=== PATIENT | female | born 1965 | race Caucasian/White ===

== ENCOUNTER 2019-04-08 10:38 | Emergency (ER) | payer MEDICAID ==
[~2019-04-08] VITALS: Ht 167.6 cm; Wt 79.7 kg
[~2019-04-08 10:38] MED LIST: CETI10TA24 PO; CHOL100011 PO; FERR325T18 PO; FLUT16SP NS; LISI1TAB3 PO; MULT-658 PO; SIME180C4 PO; TRIA15CR53 TP
--- NOTE | 2019-04-08 11:00 | NUR ---
RIGHT CHEST PAIN DESCRIBED SHARP W/ BLOATING/INCESSANT BURPING X 10 HOURS. PATIENT REPORTS HX OF SIMILIAR AND INCREASED STRESS LATELY. PT TOOK "GAS-X" X 2 W/OUT RELIEF. PCP MADE AWARE-TOLD TO COME IN FOR CP WORKUP. DENIES N/V, OR RADIATION OF PAIN. APPEARS WELL, VSS ON NIBP/POX PROVIDER TO BEDSIDE-TO TREAT W/ GI COCKTAIL
[2019-04-08] MEDS ORDERED: MAALOX/HYOSCYAMINE/LIDOCAINE 45 ML BTL ONE (11:14)
--- NOTE | 2019-04-08 11:25 | NUR ---
PATIENT REPORTS PAIN/BURPING IMPROVED FROM 06/18 TO 01/16 PROVIDER TO BEDSIDE TO RE-EVALUATE--PLAN TO XRAY CHEST/ABD WELL
[2019-04-08] MEDS ORDERED: MAALOX/HYOSCYAMINE/LIDOCAINE 45 ML BTL PO ONE (11:30)
--- NOTE | 2019-04-08 11:56 | NUR ---
BACK FROM RADIOLOGY PROVIDER TO BEDSIDE-REVIEWING FINDINGS PLAN TO CONTINUE TO TREAT GASTRITIS SXS WITH OUTPATIENT RX VITALS REMAIN STABLE ON MONITOR PROVIDED WITH SALTINES/WATER- TOLERATING
[2019-04-08 12:00] VITALS: BP 133/81
--- NOTE | 2019-04-08 12:12 | NUR ---
DISCHARGED IN THE COMPANY OF SPOUSE. REVIEWED PROVIDER FINDINGS (NORMAL EKG/ASSESSMENT CONSISTENT WITH GERD) -PLAN (TO TAKE OTC ANTACIDS/F/U W/ PCP)
== END 2019-04-08 12:13 | disposition home or self-care (01) ==
LOC: ED 11:06
DX: K21.9 Gastro-esophageal reflux disease without esophagitis (principal); I10 Essential (primary) hypertension
CPT/HCPCS: 74022; 93005; 99283